=== PATIENT | female | born 1935 | race Caucasian/White ===

== ENCOUNTER 2016-06-12 12:35 | Emergency (ER) | payer MEDICARE, OTHER ==
[~2016-06-12] VITALS: Ht 160 cm; Wt 62.5 kg
[~2016-06-12 12:35] MED LIST: ACET1TAB40 PO; ALPR0.5T6 PO; ATOR80TA75 PO; CANA300T PO; CLON1PAT2 TRANSDERM; DOCU-144 PO; EZET10TA3 PO; IBUP-1542 PO; INSU100I27 SQ; LOSA50TA6 PO; NOVO3I SC; TRAZ100T15 PO
[2016-06-12 12:51] VITALS: Ht 160 cm; Wt 62.5 kg
--- NOTE | 2016-06-12 13:55 | ERA ---
ER Documentation Chief Complaint Date/Time DATE: 06/12/16 TIME: 13:54 Chief Complaint Pt with AP X 1 week, had Geri about 1.5 month ago. HPI The patient is a 81-year-old female, presenting to the ER because of right upper quadrant abdominal pain for 1 week, no hypertension, no aggravating or relieving factor. She recently had ERCP with CBD stent placement and sphincterotomy by in April 2016. She also had a laparoscopic cholecystectomy by Dr. Gonzalez. She denies fever, complaints of dizziness and dysuria, denies neck pain, chest pain, dyspnea, vomiting, diarrhea. She does not smoke, drink Past medical history: Diabetes mellitus, anxiety, dyslipidemia, hypertension Past surgical history: Cholecystectomy, CBD stent placement, sphincterotomy, ERCP ROS All systems reviewed and are negative except as per history of present illness. Medications Home Meds Active Scripts Tramadol HCl (Tramadol HCl) 50 Mg Tablet, 50 MG PO Q6 Y for PAIN, #10 TAB Prov:RAFI SKINNER MD 06/12/16 Trazodone Hcl* (Desyrel*) 100 Mg Tab, 100 MG PO HS Y for Insomnia for 30 Days, # 30 TAB 5 Refills Prov:RAFI DE LA CRUZ MD 05/01/16 Docusate Sodium* (Colace*) 100 Mg Capsule, 100 MG PO BID for 30 Days, #60 CAP 5 Refills Prov:RAFI DE LA CRUZ MD 05/01/16 Clonidine Patch (CLONIDINE PATCH) 1 Each Patch.tdwk, 1 PATCH TRANSDERM Q7D for 30 Days, #4 5 Refills Prov:RAFI DE LA CRUZ MD 05/01/16 Alprazolam* (Alprazolam*) 0.5 Mg Tablet, 0.5 MG PO Q8H Y for ANXIETY for 30 Days , #90 TAB 3 Refills Prov:RAFI DE LA CRUZ MD 05/01/16 Insulin Aspart* (Novolog Insulin Pen*) 100 Unit/Ml Soln, 8 UNIT SC AC MEALS for 30 Days, EA Prov:RAFI DE LA CRUZ MD 05/01/16 Insulin Detemir (Levemir Flextouch) 100 Unit/1 Ml Insuln.pen, 12 UNIT SQ QHS for 30 Days Prov:RAFI DE LA CRUZ MD 05/01/16 Acetaminophen with Codeine (Acetaminophen-Cod #3 Tablet) 1 Each Tablet, 1-2 TAB PO Q6H Y for PAIN, #30 TAB Prov:VIRAL TOURE PA-C 03/21/16 Ibuprofen* (Motrin*) 600 Mg Tab, 600 MG PO Q8, #30 TAB Prov:CATRACHITA MASON DO 01/18/16 Reported Medications Canagliflozin (Invokana) 300 Mg Tablet, 300 MG PO DAILY for 30 Days, #30 TAB 3 Refills 01/18/16 Ezetimibe* (Zetia*) 10 Mg Tablet, 10 MG PO HS for 30 Days, #30 TAB 3 Refills 01/18/16 Atorvastatin* (Atorvastatin*) 80 Mg Tablet, 80 MG PO QHS for 30 Days, #30 TAB 3 Refills 01/18/16 Losartan Potassium* (Losartan Potassium*) 50 Mg Tablet, 50 MG PO DAILY for 30 Days, #30 TAB 01/18/16 Allergies Allergies: Coded Allergies: No Known Allergy (Verified , 06/12/16) PMhx/Soc History of Surgery: No Anesthesia Reaction: No Hx Neurological Disorder: No Hx Respiratory Disorders: No Hx Cardiac Disorders: No Hx Psychiatric Problems: No Hx Miscellaneous Medical Probl: Yes (DM, high cholesterol, htn, gastritis) Hx Alcohol Use: No Hx Substance Use: No Hx Tobacco Use: No Physical Exam Vitals Vital Signs Date Time Temp Pulse Resp B/P Pulse Ox O2 Delivery O2 Flow Rate FiO2 06/12/16 16:52 97.5 74 18 183/98 98 Room Air 06/12/16 12:51 97.7 80 20 173/78 98 Physical Exam Const: No acute distress. Head: Atraumatic. Eyes: Normal Conjunctiva. ENT: Normal External Ears, Nose and Mouth. Neck: Full range of motion. No meningismus. Resp: Clear to auscultation bilaterally. Cardio: Regular rate and rhythm, no murmurs. Abd: Soft, non distended, normal bowel sounds, moderate right upper quadrant tenderness, no rigidity, rebound, CVA tenderness Skin: No petechiae or rashes. Back: No midline or flank tenderness. Ext: No cyanosis, or edema. Neur: Awake and alert. No focal deficit Psych: Normal Mood and Affect. Result Diagram: 06/12/16 1450 06/12/16 1450 Results 24 hrs Laboratory Tests Test 06/12/16 14:50 06/12/16 16:45 Activated Partial Thromboplast Time 25.7Sec Alanine Aminotransferase (ALT/SGPT) 43IU/L Albumin 4.4g/dl Albumin/Globulin Ratio 1.00 Alkaline Phosphatase 207IU/L Anion Gap 17 Aspartate Amino Transf (AST/SGOT) 45IU/L Basophils # 0.010^3/ul Basophils % 0.3% Blood Morphology Comment Blood Urea Nitrogen 12mg/dl Calcium Level 10.2mg/dl Carbon Dioxide Level 30mmol/L Chloride Level 100mmol/L Creatinine 0.58mg/dl Direct Bilirubin 0.00mg/dl Eosinophils # 0.310^3/ul Eosinophils % 4.2% Globulin 4.40g/dl Glucose Level 126mg/dl Hematocrit 43.9% Hemoglobin 14.3g/dl INR International Normalized Ratio 0.91 Indirect Bilirubin 0.5mg/dl Lipase 71U/L Lymphocytes # 2.010^3/ul Lymphocytes % 28.4% Mean Corpuscular Hemoglobin 28.8pg Mean Corpuscular Hemoglobin Concent 32.6g/dl Mean Corpuscular Volume 88.5fl Mean Platelet Volume 8.1fl Monocytes # 0.510^3/ul Monocytes % 6.7% Neutrophils # 4.310^3/ul Neutrophils % 60.4% Nucleated Red Blood Cells # 0.010^3/ul Nucleated Red Blood Cells % 0.0/100WBC Platelet Count 74268^3/UL Potassium Level 4.3mmol/L Prothrombin Time 12.2Sec Prothrombin Time Ratio 1.0 Red Blood Count 4.9610^6/ul Red Cell Distribution Width 18.9% Sodium Level 143mmol/L Total Bilirubin 0.5mg/dl Total Protein 8.8g/dl White Blood Count 7.110^3/ul Bedside Urine Blood Trace-intact Bedside Urine Glucose (UA) 0.50% Bedside Urine Ketones (LAB) Negative Bedside Urine Leukocyte Esterase (L Trace Bedside Urine Nitrite (LAB) Negative Bedside Urine Protein (LAB) Negative Bedside Urine pH (LAB) 7.0 Current Medications Medications (Trade) Dose Ordered Sig/Francisca Route PRN Reason Start Time Stop Time Status Last Admin Dose Admin IV Flush 10 ml 10 ml STK-MED ONCE .ROUTE 06/12/16 16:03 06/12/16 16:04 DC 06/12/16 16:21 Sodium Chloride (NS) 100 ml @ ud STK-MED ONCE .ROUTE 06/12/16 16:03 06/12/16 16:04 DC 06/12/16 16:21 Iodixanol (Visipaque Locm) 100 ml STK-MED ONCE .ROUTE 06/12/16 16:03 06/12/16 16:04 DC 06/12/16 16:22 Procedures/[place] [id number] Radiology Main Line: [phone] DIAGNOSTIC IMAGING REPORT Patient: RODRIGO NO : 1935 Age: 81 Sex: F MR #: [id number] DOS: 06/12/16 1405 Ordering MD: RAFI SKINNER MD Location: E/R Room/Bed: PROCEDURE: CT Abdomen and Pelvis with Contrast CLINICAL INDICATION: Right upper quadrant abdominal pain, status post lap choline 1 month ago TECHNIQUE: Transaxial images were obtained through the abdomen and pelvis on a multi-slice scanner following the intravenous administration of iodinated contrast. Sagittal and coronal re-formations were subsequently reconstructed. One or more of the following dose reduction techniques were used: - Automated exposure control. - Adjustment of the mA and/or kV according to patient size. - Use of iterative reconstruction technique. Radiation dose: CTDIvol = 12.20 mGy; DLP = 688.42 mGy-cm. COMPARISON: 04/01/2016 FINDINGS: Lung bases: There is improved aeration at the lung bases since the previous study but there is considerable motion artifact. Liver: The liver remains normal in size. No hepatic mass is evident. The hepatic and portal veins are patent. Gallbladder: Surgical melecio are now seen in the gallbladder fossa and there has been interval cholecystectomy. Bile ducts: A biliary stent has been placed which superiorly extends into the right main intrahepatic bile duct and inferiorly extends into the duodenum. The common bile duct is dilated around the stent to approximately 1.3 cm in diameter to the head of the pancreas. There is central intrahepatic bile duct dilatation and there is pneumobilia with an 11 mm collection of air seen in the gallbladder fossa. Pancreas: The pancreas appears unremarkable with no masses or inflammation identified. Spleen: Normal in size with no focal lesion. Adrenals: Normal with no mass identified. Kidneys, ureters and bladder: To 4 mm hypodensities are seen within the medial midpole of the right kidney which likely represent cysts. There is mild right pelvocaliectasis but no ureterolith is evident. The left kidney is small and lobulated in contour compatible with scarring. There is a prominent renal pelvis and the ureter is mildly dilated. The bladder is quite distended with urine. Reproductive organs: The uterus deviates to the left of midline. A 2.9 x 2.4 cm left adnexal cyst is evident. Stomach, bowel, and mesentery: There is abundant stool in the rectal ampulla. A few scattered colonic diverticuli are noted. There is no evidence of bowel obstruction or inflammation. There is a small hiatal hernia. Appendix: A normal vermiform appendix is evident. Peritoneum: No free intraperitoneal fluid or air is identified. Aorta: There is atherosclerotic vascular calcification but no abdominal aortic aneurysm is evident. IVC: Unremarkable. Lymph nodes: No pathologically enlarged nodes are identified. Osseous structures: There is again a a compression fracture deformity at L1 with slightly greater anterior wedging than seen previously and with slight retropulsion of the posterior-superior corner with borderline stenosis to the central canal. Mild degenerative changes again seen about the right hip. IMPRESSION: 1. Since the previous study, the percutaneous gallbladder drainage catheter has been removed, the patient is undergone a cholecystectomy, and a biliary stent has been placed which superiorly extends into the right main hepatic duct. 2. There is mild dilatation of the central intrahepatic as well as the extrahepatic biliary tree with the common bile duct measuring 1.3 cm in cross diameter about the stent. There is pneumobilia and there is a 1.1 cm collection of air seen within the gallbladder fossa. 3. The pancreas appears unremarkable. 4. Tiny cysts are seen within the right kidney wall of the left kidney is small and scarred. There is mild bilateral pelvocaliectasis and mild dilatation of the left ureter with no ureterolith identified with the bladder quite distended with urine. 5. The rectum is quite distended with stool and there are a few scattered colonic diverticuli but there is no evidence of bowel obstruction or inflammation with a normal-appearing vermiform appendix evident. 6. A 2.9 cm left adnexal cyst is evident. 7. There is again a compression fracture deformity and L1 with slightly increased loss of anterior vertebral body height with slight persistent retropulsion of the posterior-superior corner associated borderline stenosis to the central canal. There is an old appearing fracture involving the left inferior pubic ramus and mild degenerative change seen to the spine and about the right hip. 8. Resolution of the discoid atelectasis previously seen at the lung bases. Physician Rosie Date Time Electronically viewed and signed by Physician Rosie on 06/12/2016 16:47 RH/ CC: RAFI SKINNER MD MEDICAL MAKING DECISION: The patient is a 81-year-old female, presenting with acute postoperative at the right upper quadrant. The differential diagnoses considered include but are not limited to cholelithiasis, cholecystitis, cystitis, pancreatitis, hepatitis, gastritis, peptic ulcer disease, gastric ulcer, appendicitis, diverticulitis, cholangitis, choledocholithiasis, partial small bowel obstruction. Departure Diagnosis: Primary Impression: Abdominal pain Condition: Good Comments She was discharged with [facility] I discussed the findings with the patient. I advised the patient to follow-up with the primary physician and her kennel technician Dr. Hamilton in about 1-2 days, sooner if needed and return if any concern. RAFI SKINNER MD Jun 12, 2016 13:55
[2016-06-12 15:12] LABS: INR 0.91; PROTIME 12.2 Sec (12.2-14.2)
[2016-06-12 15:13] LABS: PARTIAL THROMBOPLASTIN TIME 25.7 Sec (25.0-35.0)
[2016-06-12 15:18] LABS: BASOPHILS % 0.3 % (0.0-2.0); EOSINOPHILS # 0.3 10^3/ul (0.0-0.5); EOSINOPHILS % 4.2 % (0.0-7.0); HEMATOCRIT 43.9 % (37.0-47.0); HEMOGLOBIN 14.3 g/dl (12.0-16.0); LYMPHOCYTES % 28.4 % (15.0-51.0); MEAN CORPUSCULAR HEMOGLOBIN 28.8 pg (29.0-33.0); MEAN CORPUSCULAR HGB CONC 32.6 g/dl (32.0-37.0); MEAN CORPUSCULAR VOLUME 88.5 fl (82.0-101.0); MEAN PLATELET VOLUME 8.1 fl (7.4-10.4); MONOCYTE # 0.5 10^3/ul (0.3-0.9); MONOCYTES % 6.7 % (0.0-11.0); NEUTROPHIL # 4.3 10^3/ul (1.6-7.5); NEUTROPHILS % 60.4 % (39.0-77.0); PLATELET COUNT 262 10^3/UL (140-440); RED BLOOD COUNT 4.96 10^6/ul (4.20-5.40); RED CELL DISTRIBUTION WIDTH 18.9 % (11.5-14.5); UNCORRECTED WBC 7.1 10^3/ul (4.8-10.8); WHITE BLOOD COUNT 7.1 10^3/ul (4.8-10.8)
[2016-06-12 15:19] LABS: ALBUMIN 4.4 g/dl (3.3-4.9); CONDITION 1; LH ANALYZER COMMENTS 1
[2016-06-12 15:20] LABS: POTASSIUM 4.3 mmol/L (3.5-5.1)
[2016-06-12 15:22] LABS: BILIRUBIN,INDIRECT 0.5 mg/dl (0-1.1); BILIRUBIN,TOTAL 0.5 mg/dl (0.2-1.3); CREATININE 0.58 mg/dl (0.44-1.00); TOTAL PROTEIN 8.8 g/dl (6.1-8.1)
[2016-06-12 15:23] LABS: CALCIUM 10.2 mg/dl (8.4-10.2)
[2016-06-12] MEDS ORDERED: IODIXANOL LOCM 100 ML BTL ONE (16:03)
[2016-06-12] MEDS ORDERED: SOD CHLORIDE 0.9% 100 ML ONE (16:03)
[2016-06-12 16:45] LABS: URINE BLOOD (Dip) POC Trace-intact (NEGATIVE)
--- NOTE | 2016-06-12 16:47 | RADRPT ---
PROCEDURE: CT Abdomen and Pelvis with Contrast CLINICAL INDICATION: Right upper quadrant abdominal pain, status post lap choline 1 month ago TECHNIQUE: Transaxial images were obtained through the abdomen and pelvis on a multi-slice scanner following the intravenous administration of iodinated contrast. Sagittal and coronal re-formations were subsequently reconstructed. One or more of the following dose reduction techniques were used: - Automated exposure control. - Adjustment of the mA and/or kV according to patient size. - Use of iterative reconstruction technique. Radiation dose: CTDIvol = 12.20 mGy; DLP = 688.42 mGy-cm. COMPARISON: 04/01/2016 FINDINGS: Lung bases: There is improved aeration at the lung bases since the previous study but there is consi derable motion artifact. Liver: The liver remains normal in size. No hepatic mass is evident. The hepatic and portal veins are patent. Gallbladder: Surgical melecio are now seen in the gallbladder fossa and there has been interval chol ecystectomy. Bile ducts: A biliary stent has been placed which superiorly extends into the right main intrahepati c bile duct and inferiorly extends into the duodenum. The common bile duct is dilated around the destiny nt to approximately 1.3 cm in diameter to the head of the pancreas. There is central intrahepatic b ile duct dilatation and there is pneumobilia with an 11 mm collection of air seen in the gallbladder fossa. Pancreas: The pancreas appears unremarkable with no masses or inflammation identified. Spleen: Normal in size with no focal lesion. Adrenals: Normal with no mass identified. Kidneys, ureters and bladder: To 4 mm hypodensities are seen within the medial midpole of the right kidney which likely represent cysts. There is mild right pelvocaliectasis but no ureterolith is shad dent. The left kidney is small and lobulated in contour compatible with scarring. There is a promi nent renal pelvis and the ureter is mildly dilated. The bladder is quite distended with urine. Reproductive organs: The uterus deviates to the left of midline. A 2.9 x 2.4 cm left adnexal cyst i s evident. Stomach, bowel, and mesentery: There is abundant stool in the rectal ampulla. A few scattered colon ic diverticuli are noted. There is no evidence of bowel obstruction or inflammation. There is a sm all hiatal hernia. Appendix: A normal vermiform appendix is evident. Peritoneum: No free intraperitoneal fluid or air is identified. Aorta: There is atherosclerotic vascular calcification but no abdominal aortic aneurysm is evident. IVC: Unremarkable. Lymph nodes: No pathologically enlarged nodes are identified. Osseous structures: There is again a a compression fracture deformity at L1 with slightly greater an terior wedging than seen previously and with slight retropulsion of the posterior-superior corner wi th borderline stenosis to the central canal. Mild degenerative changes again seen about the right h ip. IMPRESSION: 1. Since the previous study, the percutaneous gallbladder drainage catheter has been removed, the p atient is undergone a cholecystectomy, and a biliary stent has been placed which superiorly extends into the right main hepatic duct. 2. There is mild dilatation of the central intrahepatic as well as the extrahepatic biliary tree wi th the common bile duct measuring 1.3 cm in cross diameter about the stent. There is pneumobilia an d there is a 1.1 cm collection of air seen within the gallbladder fossa. 3. The pancreas appears unremarkable. 4. Tiny cysts are seen within the right kidney wall of the left kidney is small and scarred. There is mild bilateral pelvocaliectasis and mild dilatation of the left ureter with no ureterolith ident ified with the bladder quite distended with urine. 5. The rectum is quite distended with stool and there are a few scattered colonic diverticuli but t here is no evidence of bowel obstruction or inflammation with a normal-appearing vermiform appendix evident. 6. A 2.9 cm left adnexal cyst is evident. 7. There is again a compression fracture deformity and L1 with slightly increased loss of anterior vertebral body height with slight persistent retropulsion of the posterior-superior corner associate d borderline stenosis to the central canal. There is an old appearing fracture involving the left i nferior pubic ramus and mild degenerative change seen to the spine and about the right hip. 8. Resolution of the discoid atelectasis previously seen at the lung bases. Physician Rosie Date Time Electronically viewed and signed by Physician Rosie on 06/12/2016 16:47 RH/
[2016-06-12 16:52] VITALS: BP 183/98; PULSE 74; RESP 18; TEMP 97.5
[2016-06-12] MEDS ORDERED: ULT50 PO (17:15)
== END 2016-06-12 17:55 | disposition home or self-care (01) ==
LOC: E/R 12:35
DX: R10.11 Right upper quadrant pain (principal); E11.9 Type 2 diabetes mellitus without complications; I10 Essential (primary) hypertension; Z79.4 Long term (current) use of insulin; Z79.84 Long term (current) use of oral hypoglycemic drugs
CPT/HCPCS: 74177; 80053; 81003; 83690; 85025; 85610; 85730; Q9967; 36415

== ENCOUNTER 2016-07-11 11:16 | Day surgery (SDC) | payer MEDICARE, OTHER ==
[2016-07-11] VITALS (16 sets, daily range): BP systolic 146–202; BP diastolic 66–88; PULSE 64–71; RESP 11–18; Ht 149.9 cm; Wt 64.0 kg
[~2016-07-11] VITALS: Ht 149.9 cm; Wt 64.0 kg
[~2016-07-11 11:16] MED LIST changes: +TRAM50TA2 PO
[2016-07-11] MEDS ORDERED: FURO40TA4 PO (12:18)
[2016-07-11] MEDS ORDERED: POTA20TA96 PO (12:19)
[2016-07-11] MEDS ORDERED: ALPR0.5T6 PO (12:19)
[2016-07-11] MEDS ORDERED: LEVEM SC (12:21)
[2016-07-11] MEDS ORDERED: NOVO3I SC (12:21)
[2016-07-11] MEDS ORDERED: DEXTROSE 5%-0.45% NACL 1,000 ML IV SCH (12:30)
[2016-07-11 13:23] LABS: POTASSIUM 4.2 mmol/L (3.5-5.1)
[2016-07-11 13:31] LABS: CALCIUM 9.7 mg/dl (8.4-10.2); CREATININE 0.56 mg/dl (0.44-1.00)
[2016-07-11] MEDS ORDERED: PROPOFOL 40 ML ONE (13:53)
[2016-07-11] MEDS ORDERED: FENTAnyl 50 MCG/ML VIAL ONE (13:54)
[2016-07-11] MEDS ORDERED: MEPERIDINE 25 MG INJ IV PRN (14:00)
[2016-07-11] MEDS ORDERED: ONDANSETRON 4 MG INJ IV PRN (14:00)
[2016-07-11] MEDS ORDERED: FENTAnyl 50 MCG/ML VIAL IV PRN ×2 (14:00)
[2016-07-11] MEDS ORDERED: hydrALAzine 20 MG INJ IV PRN (14:00)
[2016-07-11] MEDS ORDERED: HYDROmorphONE (0.2 MG/ML) 10ML SYG IV PRN ×2 (14:00)
[2016-07-11] MEDS ORDERED: OXYCODONE/ACETAMINOPHEN (5/325) TAB PO PRN (14:00)
[2016-07-11] MEDS ORDERED: LABETALOL HCL 20MG INJ IV PRN (14:00)
[2016-07-11] MEDS ORDERED: IOHEXOL 300MG/ML 30 ML BTL ONE (14:09)
[2016-07-11] MEDS ORDERED: INDOMETHACIN 50 MG SUPP PR ONE (14:30)
--- NOTE | 2016-07-11 15:34 | GILP ---
DATE OF PROCEDURE: PROCEDURE: ERCP, removal of common bile duct stent, removal of CBD stones and sludge. PREOPERATIVE DIAGNOSIS: The patient has a history of ERCP in the past, sphincterotomy, CBD stent samantha cement. At this time the procedure is performed to remove the stent and remove the stones, if any fo und. POSTOPERATIVE DIAGNOSES: Common bile duct stent and stones. They were removed. DESCRIPTION OF PROCEDURE: After the informed written consent was obtained, the patient was intubate d by the anesthesiology, . When the patient became somnolent, the Olympus video side-viewin g duodenoscope was inserted into the oropharynx, then into the esophagus, and subsequently to the st omach and duodenum. There was evidence of a CBD stent noted in the right place. By using the snar e, the stent was removed through the scope. Subsequently, a stone extraction balloon was inserted i nto the common hepatic duct and contrast was injected. Some filling defects were note. Balloon swee ping was performed and multiple small stones and sludge were removed. At the end of the procedure n o more filling defects were noted and the scope at this time was withdrawn and the procedure was ter minated. PLAN: Recommend to follow the patient closely in the office. Dictated By: MARCO ANTONIO NGUYEN/SANTI Conf#: [id number] DID#: [id number] CC: RAFI DE LA CRUZ MD;*EndCC*
--- NOTE | 2016-07-11 18:25 | RADRPT ---
PROCEDURE: Intraoperative imaging for ERCP with fluoroscopy. CLINICAL INDICATION: Right upper quadrant pain. Intraoperative. TECHNIQUE: 6 images of the right upper quadrant of the abdomen were obtained in the operating room with an image intensifier. No radiologist was in attendance. 58 seconds of fluoroscopy time was u sed. COMPARISON: 04/25/2016. FINDINGS: Images demonstrate the endoscope in position. Contrast was injected into the common bile duct. The common bile duct is dilated. A balloon sweep was made. The pancreatic duct was not injected. IMPRESSION: 1. ERCP as described above. RPTAT: QQ .Harjeet Simmons MD, Date Time Electronically viewed and signed by .Harjeet Simmons MD, on 07/11/2016 18:25 .R/
--- NOTE | 2016-07-11 20:52 | RADRPT ---
Vent Rate: 66 bpm RR Interval: 0 msec TX Interval: 178 msec QRS Duration: 72 msec QT Interval: 400 msec QTC Interval: 419 msec P-R-T [place]: 55 - 48 - 74 degrees Normal sinus rhythm Cannot rule out Anterior infarct , age undetermined Abnormal ECG Electronically Signed By: Pito Andino [id number]
== END 2016-07-11 17:12 | disposition home or self-care (01) ==
LOC: SDS 11:16
PROVIDERS: ATTEND Internal Medicine Gastroenterology
DX: K80.50 Calculus of bile duct without cholangitis or cholecystitis without obstruction (principal); I10 Essential (primary) hypertension; E11.9 Type 2 diabetes mellitus without complications
CPT/HCPCS: 43264; 74330; 80048; 82962; 93005; J0360; J3010; Q9967